=== PATIENT | male | born 1965 | race Caucasian/White ===

== ENCOUNTER → 2017-06-10 | Outpatient (CLI) | payer OTHER ==
[~2017-06-10] MED LIST: ALBUAER19 INH; DPTSTI200 IM; ESOM20CA PO; ETRA100T3 PO; RALT400T PO; [UNRECOGNIZED DRUG - CODE] PO
--- NOTE | 2017-06-11 05:15 | PAP/PSG TECHNICIAN REPORT ---
[facility] Supervisor Typesetting Polysomnogram Report Study name: None Report date: 06/11/2017 Study date: 06/10/2017 Referring Physician: Ino Gonzáles M.D. Name: MAUREEN WINKLER Interpreting Physician: Yael Gonzáles M.D. Date of : 1965 Supervisor Typesetting: REECE Chambers. Sex: Male Age: 51 StudyType: PSG PAP Weight: 218 lbs Height: 51 years, Height 5' 9" BMI: 32.19 Medications: INTELENCE 100 MG, SELZENTRY 300 MG, ISENTRESS 400 MG, SINGULAIR 10 MG, WELLBUTRIN SR 100 MG, PROAIR HFA 108 (90) BASE, FLONASE 50 MCG/ACT, NEXIUM 40 MG Patient History PATIENT HAD A HOME SLEEP STUDY DONE IN DECEMBER OF 2016 WITH AN AHI 27.4/HR. HE CURRENTLY WEARS CPAP WITH 12CWP. HE IS HERE TODAY FOR A CPAP TITRATION. RM 5 Parameters Monitored NPSG: E1-M2, E2-M1, Fp1-M2, Fp2-M1, F3-M2, F4-M2, F4-M1, C3-M2, C4-M2, C4-M1, O1-M2, O2-M2, O2-M1, T3-M2, T4-M1, P3-M2, P4-M1, CHIN1, CHIN2, HR, EKG, Legs, PFLOW, SNOR, FLOW, CFLOW, Tidal Volume, THOR, ABDO, SpO2, PLTH, CPRESS, ETCO2 Wave, ETCO2, pH Sleep Architecture Sleep Stages Time at Lights Off 9:58:10 PM STAGES Time (min.) TST (%) Time at Lights On 4:21:10 AM Wake 30.0 -- Total Recording Time (TRT) 383.50 min. N1 12.0 3 Total Sleep Period (TSP) 374.0 min. N2 193.0 55 Total Sleep Time (TST) 353.0min. N3 48.0 14 Awake Time 30.5 min. REM 100.0 28 Wake after Sleep Onset 28.0 min. Sleep Efficiency (SE) 92 % Sleep Onset Latency (CHRISTAL) 2.0 min. Number of Stage 1 Shifts None Awakenings 18 Stage Changes 67 Number of REM periods 6 REM 100.0 28 REM Latency 58.5 min. NREM 253.0 72 Body Position Analysis Supine Right Left Side Prone Vertical Total Sleep Time (min.) 212.5 114.3 45.7 160.05 3.9 0.0 Total Sleep Time (%) 54% 32% 13% 45 1% N/A% Total Sleep Time REM (min.) 50.7 49.3 0.0 None 0.0 0.0 Total Sleep Time NREM (min.) 138.4 65.0 45.7 None 3.9 0.0 Intermittent Wake (min.) 23.4 4.0 2.6 None 0.0 0.0 Total Sleep Period (%) 54% None None None None None Arousals Myoclonus (PLM) * Events Count Index Events Count Index Spontaneous 27 5 Events Awake (PLMW) 48 96.0 Respiratory 7 1.2 Events Asleep w/ Arousal (PLMA) 23 3.9 PLM 22 4 Events Asleep w/o Arousal (PLMS) 235 39.9 Snoring 8 1 Total Asleep 258 43.9 Total 64 11 Total 306 48 Respiratory Analysis * CA OA MA CH H RERA Total Count 1 1 0 0 12 4 14 Index 0.2 0.2 0.0 0 2.0 1 3.1 Mean Duration 15.3 12.3 0.0 0.00 16.6 15.6 16.1 Longest Duration 15.3 12.3 0.0 0.00 0.0 17.3 26.5 Respiratory Event Summary Total Supine ~Supine Right Left Prone REM NREM Apneas Count 2 1 1 1 0 0 2 0 Index 0.3 0 0 0.5 0.0 0 1 0 Hypopneas (4% Desat) Count 12 4 8 8 0 0 12 0 Index 2.0 1.3 3 4.2 0.0 0.0 7.2 0.0 Apneas & All Hypopneas Count 14 5 9 9 0 0 14 0 Index 2.4 2 3 5 0 0 8.4 0.0 Respiratory Events (Child Care Assistant+All Hyp+RERA) Count 14 7 11 11 0 0 14 0 Index 3.1 2 4 5.8 0.0 0.0 9.6 0.5 Respiratory Related Arousal Count 7 7 3 3 0 0 5 2 Index 1.2 1 1 2 0 0 3 0 Snoring Analysis Supine Right Left Prone REM NREM Total Snore duration 10.4 min Snores count 255 132 72 0 122 337 459 Snore mean duration 1.4 Sec Snores index 81 69 94 0 73.2 79.9 78.0 TST with snoring (%) 2.9% Desaturation Event Summary: Minimum %SpO2 Event Count Mean/Min/Max Duration(sec.) Desaturation Index % Time In Bed > 90 16 35.9 / 10.8 / 60.0 2.6 98.9 86 - 90 1 12.0 / 12.0 / 12.0 18.0 0.9 81 - 85 0 N/A 0.0 0.2 76 - 80 0 N/A 0.0 0.0 71 - 75 0 N/A 0.0 0.0 66 - 70 0 N/A 0.0 0.0 61 - 65 0 N/A 0.0 0.0 56 - 60 0 N/A 0.0 0.0 51 - 55 0 N/A 0.0 0.0 < 50 0 N/A 0.0 0.0 Total REM NREM Awake <50% 0.0 min. 0.0 min. 0.0 min. 0.0 min. 51 - 60% 0.0 min. 0.0 min. 0.0 min. 0.0 min. 61 - 70% 0.0 min. 0.0 min. 0.0 min. 0.0 min. 71 - 80% 0.0 min. 0.0 min. 0.0 min. 0.0 min. 81 - 90% 4.1 min. 1.8 min. 1.0 min. 1.4 min. 91 - 100% 369.7 min. 96.4 min. 250.2 min. 23.1 min. Average 94 94 93 94 Minimum SpO2 82 83 88 82 Desaturation Event Index 2.5 8.4 0.0 4.0 # Desat. Events below 89% 3 3 N/A 0 Time(%) with Saturation below 89% 0.3 0.2 0.0 0.2 Time(min.) with Saturation below 89% 1.3 0.6 0.0 0.6 Time (mins) REM (mins) NREM (mins) % of TST SpO2 Below 90% 4 4 NN/A 0.3 SpO2 Below 88% 1 0 0 0 Heart Rate Analysis Min (bpm) Max (bpm) Average (bpm) Awake 51 127 74 NREM 58 88 72 REM 56 127 70 Overall 56 127 71 Supplemental O2 Values Minimum O2 level: None Value Start Time End Time Supervisor Typesetting Comments Mr. Winkler slept in the right, left, supine and prone positions. No cardiac arrhythmia noted. Leg movements noted. No bruxism noted. CPAP was initiated at 10 CMH2O and up-titrated to an optimal level of 15 CMH2O, which nearly eliminated all respiratory events and snoring. The patient brought in is own mask that was used during titration Mr. Winkler awoke to use the restroom 1 time during the night. Mr. Winkler stated I slept as well as I do when I am in my own bed. The final report will be interpreted and signed by a sleep physician. The completed physician report will then be placed in the patient medical record. Therapy Event: Therapy (cm H20) 10 11 12 13 14 15 Total Time at Pressure (min.) 45.2 35.8 92.0 32.1 95.5 82.4 TST at Pressure (min.) 41.2 35.3 88.5 28.1 94.5 65.4 # Periods 1 1 1 1 1 1 Sleep Onset (min.) 2.0 0.0 0.0 0.0 0.0 0.0 REM Onset (min.) N/A 15.3 63.6 N/A 39.4 40.4 Sleep Efficiency % 91 98 96 87 99 79 Wakefulness (%) 8.9 1.4 3.8 12.5 1.0 20.6 Wakefulness (min.) 4.0 0.5 3.5 4.0 1.0 17.0 NREM 1 (%) 5.5 2.8 2.2 7.8 1.0 3.6 NREM 1 (min.) 2.5 1.0 2.0 2.5 1.0 3.0 NREM 2 (%) 57.9 44.1 44.6 79.8 35.6 61.2 NREM 2 (min.) 26.2 15.8 41.0 25.6 34.0 50.4 NREM 3 (%) 27.7 0.0 32.6 0.0 5.8 0.0 NREM 3 (min.) 12.5 0.0 30.0 0.0 5.5 0.0 REM (%) 0.0 51.7 16.8 0.0 56.5 14.6 REM (min.) 0.0 18.5 15.5 0.0 54.0 12.0 # Arousals 7 11 13 7 19 7 Arousal Index 10.2 18.7 8.8 14.9 12.1 6.4 # Snore 67 40 89 78 128 57 Snore Index 97.6 68.1 60.3 166.5 81.2 52.3 AHI 0.0 3.4 0.7 0.0 5.7 1.8 AHI Supine 0.0 3.4 0.0 0.0 2.2 2.0 AHI Non-Supine N/A N/A 0.7 0.0 7.1 0.0 NREM AHI 0.0 0.0 0.0 0.0 0.0 0.0 REM AHI N/A 6.5 3.9 N/A 10.0 10.0 RDI 2.9 3.4 0.7 0.0 7.0 1.8 # Obstructive 0 0 0 0 1 0 # Central Ap 0 0 0 0 0 1 # Mixed 0 0 0 0 0 0 # Hypopneas 0 2 1 0 8 1 RERAS 2 0 0 0 2 0 Total Respiratory Events 2 2 1 0 11 2 Time Below SpO2 89.00% (min.) 0.0 0.5 0.0 0.0 0.1 0.0 Mean NREM SpO2 (%) 92 92 93 94 94 94 Mean REM SpO2 (%) N/A 93 94 N/A 94 94 Mean Sleep SpO2 (%) 92 93 94 94 94 94 Min NREM SpO2 (%) 88 91 91 91 92 91 Min REM SpO2 (%) N/A 83 92 N/A 87 91 Position Supine (min.) 41.2 35.3 4.8 21.1 26.7 60.0 Position Non-supine (min.) 0.0 0.0 83.7 7.1 67.8 5.4 LM Index Sleep 87.4 76.6 21.7 81.1 35.5 24.8 LM Index NREM 87.4 89.5 14.8 81.1 3.0 23.6 LM Index REM N/A 64.9 54.2 N/A 60.0 30.0 Mean Heart Rate (bpm) 79 75 72 68 69 68 Min Heart Rate (bpm) 73 66 61 58 56 58
--- NOTE | 2017-06-18 19:47 | POLYSOMNOGRAPH REPORT ---
REFERRING PERSON: Dr. Natty Gonzáles. CONTRO[employer]ER [employer]: Johnny Anderson. Mr. Winkler is a 51-year-old male who presents to the sleep lab for a CPAP titration study. He had a home sleep test in December of 2016, which showed an AHI of 27. He is currently using CPAP at home with a pressure of 12. His [place] sleepiness scale score on the evening of this study is not recorded. BMI is 32.19. Following the technical and digital specifications of the [employer] (AASM) a standard diagnostic polysomnogram was performed monitoring EEG, EOG, EMG (chin and leg deviations), oxygen saturation, body position, digital video, respiratory effort and airflow. The sleep Stage and event scoring was based on the AASM Manual for the Scoring of Sleep and Associated Events 2007 edition. Apneas are defined as a drop in the peak thermal sensor excursion by >90% of baseline for at least 10 seconds. Hypopneas were scored using the 4% oxygen desaturation rule (4A-[employer]) and a decrease in the nasal pressure excursions by >30% of baseline for at least 10 seconds. Respiratory effort-related arousal (RERA's) is defined as a sequence of breaths lasting at least 10 seconds characterized by increasing respiratory effort or flattening of the nasal pressure waveform leading to an arousal from sleep when the sequence of breaths does not meet criteria for an apnea or hypopnea. Apnea Hypopnea index (AHI) is defined as the number of apneas and hypopneas occurring in an hour of sleep. Respiratory disturbance index (RDI) is defined as the number of apneas, hypopneas, and RERA's occurring in an hour of sleep. Mr. Leon total sleep period time was 374 minutes. Total sleep time was 353 minutes. Sleep efficiency was 92%. Latency to sleep onset was 2 minutes with wake after sleep onset was 28 minutes. Total non-REM sleep time was 253 minutes. He spent 3% of that time in N1 sleep, 55% in N2 sleep and 14% in N3 sleep. REM latency was 58.5 minutes. Total REM sleep time was 100 minutes or 28% of total sleep time. There were 64 cortical arousals from sleep. Eight of these arousals were due to snoring, 22 were due to periodic limb movements of sleep, 7 were due to respiratory events, and 27 were spontaneous. There were 258 periodic limb movements noted on this test. Limb movement index was 43.9 and limb movement with arousal index was 3.9. There was 1 central, 1 obstructive and no mixed apneas on this test. There were 12 hypopneas and 4 RERA. Apnea-hypopnea index on this titration was normal at 2.4. Four hundred and fifty nine snoring events were recorded. Total sleep time with snoring was 2.9%. Mean saturation was 94% with desaturations to 82%. Saturations were less than 89% for 1.3 minutes during the titration. There was no cardiac ectopy noted on this study. Heart rates during sleep ranged from a low of 56 beats per minute to a high of 127 beats per minute. As stated above, this was a CPAP titration study. Mr. Winkler' titration was started at a CPAP pressure of 10 and increased to a CPAP pressure of 15 over the course of the night. Increasing pressures were needed to prevent hypopneas and arousals. He was observed on a pressure of 15 for 65.4 minutes of sleep. Twelve of those minutes were spent in supine REM sleep. AHI and RDI on this pressure were both 1.8 and there were no desaturations less than 89% on this pressure. IMPRESSION AND PLAN: Successful CPAP titration study in this patient with known obstructive sleep apnea. I would recommend that this patient's pressure be increased from a pressure of 12 to a pressure of 15. A download from his machine should be reviewed in 1 month and an apnea-hypopnea index can be reexamined at that time. RADHA
== END | disposition home or self-care (01) ==
LOC: C.NEUR 21:00
PROVIDERS: ATTEND Family Medicine
DX: G47.33 Obstructive sleep apnea (adult) (pediatric) (principal); Z99.89 Dependence on other enabling machines and devices

== ENCOUNTER 2020-12-16 14:38 | Inpatient (IN) ==
[2020-12-16] MEDS ORDERED: ACETAMINOPHEN 1,000 MG/100 ML VIAL IV STA (15:10)
--- NOTE | 2020-12-16 15:16 | Emergency Department Note ---
History of Present Illness General Chief complaint: Abdominal Pain Stated complaint: STOMACH PAIN Time Seen by Provider: 12/16/20 14:58 History of Present Illness Maximum Pain Intensity: 7 This is a 55-year-old male that presents to emergency department via private vehicle with complaints "abdominal pain". The patient notes that he felt a tearing-like sensation in his abdomen several days ago and then 2 days ago he notes that he drank some soda at work and then felt ill. He noted some uncomfortable sensations in the upper abdomen and then drank some Pepto-Bismol. He then drank a laxative. He then notes his stools were black. The pain then migrated to the lower quadrants bilaterally. No known trauma or injury. He has a history of bladder surgery, appendectomy and notes he has a hernia. He notes that he had to call off of work last night secondary to lower abdominal pain. He does note a slightly elevated temperature. He states normally he works 2 jobs and is quite active but unfortunately secondary to the pain has been bedridden. Current discomfort 05/10. No vomiting. Patient did take Motrin prior to arrival. Patient has been compliant as well with his antivirals for HIV. Home Medications Medication Instructions Recorded Confirmed Type esomeprazole magnesium 40 mg 40 mg PO DAILY 09/13/20 12/16/20 History capsule,delayed release fluticasone furoate 200 1 inh INHALATION DAILY 09/13/20 12/16/20 History mcg-vilanterol 25 mcg/dose inhalation powder montelukast 10 mg tablet 10 mg PO QPM 09/13/20 12/16/20 History tiotropium bromide 18 mcg capsule 1 cap INHALATION DAILY 09/13/20 12/16/20 History with inhalation device albuterol sulfate 2 puff INHALATION Q6 PRN 12/16/20 12/16/20 History darunavir-cobicistat [Prezcobix] 1 tab PO DAILY 12/16/20 12/16/20 History dolutegravir [Tivicay] 50 mg PO BID 12/16/20 12/16/20 History fluticasone propionate [Flonase 2 spray INTRANASAL DAILY 12/16/20 12/16/20 History Allergy Relief] gabapentin 300 mg PO HS 12/16/20 12/16/20 History Allergies Allergy/AdvReac Type Severity Reaction Status Date / Time No Known Allergies Allergy Unknown Verified 12/16/20 19:01 Past Med/Surg History Medical History (Updated 12/16/20 @ 22:44 by Joo Barreto PA-C) COPD (chronic obstructive pulmonary disease) GERD (gastroesophageal reflux disease) HIV (human immunodeficiency virus infection) RODRIGO on CPAP Surgical History (Updated 12/16/20 @ 18:57 by Nyasia Bravo PA-C) History of cholecystectomy Hx of appendectomy Hx of tonsillectomy Family History Mother Stroke Heart disease Other Dyslipidemia No family history of adverse response to anesthesia No family history of bleeding disorder Social History Smoking Status: Current every day smoker packs per day: 1; Second Hand Exposure: No; Do You Dip or Chew Tobacco: No; Tobacco Cessation Education Requested by Patient: No Hx Alcohol Use: No Hx Substance Use: No Preferred Language: [place] Car Driver Required: No Beliefs That Will Affect Care: None Current Living Situation: Spouse Other Information That Helps Us Care for You: No Feels Safe at Home: Yes Safety Concerns: Feels Safe At This Time Assistive Devices: Glasses Review of Systems A total of 10 systems reviewed and were otherwise negative Physical Exam Vital Signs Vital Signs - 24 hr 12/16/20 14:41 12/16/20 17:14 Temperature 36.9 C Temperature Source Temporal Artery Scan Pulse Rate 113 H Pulse Rate [Finger] 95 H Respiratory Rate 20 18 Respiratory Effort / Characteristics Non-Labored Spontaneous Respiratory Depth Normal Blood Pressure 122/71 Blood Pressure [Right Arm] 122/65 Blood Pressure Mean 88 Blood Pressure Mean [Right Arm] 84 Blood Pressure Position Sitting Pulse Oximetry 98 96 Oxygen Delivery Method Room Air Room Air Sepsis Recent Fever Within 48 Hours Yes Sepsis New/Unexplained Change in Mental Status No Sepsis Action Taken by Nursing No Action Required VITAL SIGNS - Vital signs and nursing notes were reviewed. Mildly tachycardic, otherwise stable. GENERAL -55-year-old male appearing his stated age who is in no acute distress. Communicates well with provider and answers questions appropriately. SKIN - Without rashes. No meningeal or petechial rash. HEAD - NC/AT. EYES - PERRL with EOMI bilaterally. Sclera anicteric. EARS - No deformities of external structures noted on gross examination bilaterally. NOSE - Midline and without cyanosis. No epistaxis or purulent drainage noted. MOUTH/OROPHARYNX - Without perioral cyanosis. NECK - Neck with FROM. No nuchal rigidity. LUNGS - Chest wall symmetric without accessory muscle use, intercostals retractions, or central cyanosis. Normal vesicular breath sounds CTA B/L. No wheezes, rales, or rhonchi appreciated. CARDIAC - RRR with S1/S2. No murmur, rubs, or gallops appreciated. ABDOMEN - Abdominal contour normal without pulsations or visible masses. BS normoactive all four quadrants. Abdomen is soft and nonrigid. Mild lower abdominal tenderness palpation bilaterally. No palpable masses, hepatosplenomegaly, or ascites noted. EXTREMITIES - No clubbing or peripheral cyanosis. No pretibial edema present. + 5/5 strength noted in UE/LE bilaterally. NEUROLOGIC - Cranial nerves II through XII grossly intact. PSYCH - A&Ox3 and cooperates fully with examiner. Pt is very pleasant and interacts well with examiner. Course Administered Medications Dolutegravir Sodium (Dolutegravir Sodium 50 Mg Tab) 50 mg PO BID MAXIMINO Stop: 01/15/21 20:59 Last Admin: 12/16/20 21:44 Dose: 50 mg Documented by: [id number] Enoxaparin Sodium (Enoxaparin Inj 40 Mg/0.4 Ml Syr) 40 mg SQ Q24H MAXIMINO Stop: 01/15/21 20:59 Last Admin: 12/16/20 21:45 Dose: 40 mg Documented by: [id number] Gabapentin (Gabapentin 300 Mg Cap) 300 mg PO HS MAXIMINO Stop: 01/15/21 20:59 Last Admin: 12/16/20 21:44 Dose: 300 mg Documented by: [id number] Hydromorphone HCl (Hydromorphone Inj 0.5 Mg/0.5 Ml Syr) 0.5 mg IV Q3H PRN PRN Reason: Pain Stop: 12/30/20 20:45 Last Admin: 12/16/20 21:12 Dose: 0.5 mg Documented by: [id number] Famotidine 20 mg/ Syringe 5 mls @ 2.5 mls/min IV BID MAXIMINO Stop: 01/15/21 20:59 Last Admin: 12/16/20 21:43 Dose: 2.5 mls/min Documented by: [id number] Lactated Ringer's (Lr) 1,000 mls @ 200 mls/hr IV .Q5H MAXIMINO Stop: 01/15/21 20:45 Last Admin: 12/16/20 21:10 Dose: 200 mls/hr Documented by: [id number] Montelukast Sodium (Montelukast Sodium 10 Mg Tablet) 10 mg PO QPM MAXIMINO Stop: 01/15/21 20:59 Last Admin: 12/16/20 21:44 Dose: 10 mg Documented by: [id number] Discontinued Medications Acetaminophen (Ofirmev) 1,000 mg in 100 mls @ 400 mls/hr IV NOW STA Stop: 12/16/20 15:24 Last Infusion: 12/16/20 16:16 Dose: 0 mls/hr Documented by: [id number] Admin: 12/16/20 15:22 Dose: 400 mls/hr Documented by: [id number] Sodium Chloride (Nss 1000ml) 1,000 mls @ 999 mls/hr IV .Q1H1M MAXIMINO Stop: 12/16/20 16:30 Last Infusion: 12/16/20 18:24 Dose: 0 mls/hr Documented by: [id number] Admin: 12/16/20 16:14 Dose: 999 mls/hr Documented by: [id number] Sodium Chloride (Nss 1000ml) 1,000 mls @ 250 mls/hr IV .Q4H MAXIMINO Stop: 12/16/20 22:14 Last Infusion: 12/16/20 20:47 Dose: 0 mls/hr Documented by: [id number] Admin: 12/16/20 18:24 Dose: 250 mls/hr Documented by: [id number] Insulin Aspart (Insulin Aspart 100 Units/Ml 3 Ml Pen) 0 units SC ACHS MAXIMINO Stop: 01/15/21 20:59 Last Admin: 12/16/20 21:41 Dose: 3 units Documented by: [id number] Cosigned by: [id number] Ioversol (Ioversol 100ml) 94 ml IV ONCE ONE Stop: 12/16/20 17:19 Last Admin: 12/16/20 17:18 Dose: 94 ml Documented by: [id number] Morphine Sulfate (Morphine Sulfate 4 Mg/Ml 1 Ml Carp\\Vial) 4 mg IV NOW STA Stop: 12/16/20 18:03 Last Admin: 12/16/20 18:24 Dose: 4 mg Documented by: [id number] Ondansetron HCl (Ondansetron Inj 2 Mg/Ml 2 Ml Vial) 4 mg IV NOW STA Stop: 12/16/20 18:03 Last Admin: 12/16/20 18:24 Dose: 4 mg Documented by: [id number] Medical Decision Making Laboratory Data Result diagrams: 12/16/20 15:16 12/16/20 15:16 Lab Results 12/16/20 12/16/20 Range/Units 15:16 15:16 WBC 13.13 H (4.8-10.8) K/uL RBC 4.89 (4.7-6.1) M/uL Hgb 13.4 L (14.0-18.0) g/dL Hct 38.5 L (42-52) % MCV 78.7 L (80-100) fL MCH 27.4 (25-34) pg MCHC 34.8 (32-36) g/dL RDW Std Deviation 40.5 (36.4-46.3) fL RDW Coeff of Saul 14.2 (11.5-14.5) % Plt Count 167 (130-400) K/uL MPV 11.7 H (7.4-10.4) fL Immature Gran % (Auto) 0.5 % Neut % (Auto) 76.9 % Lymph % (Auto) 14.5 % [place] % (Auto) 7.0 % Eos % (Auto) 0.9 % Baso % (Auto) 0.2 % Neut # (Auto) 10.11 H (1.4-6.5) K/uL Lymph # (Auto) 1.90 (1.2-3.4) K/uL [place] # (Auto) 0.92 H (0.11-0.59) K/uL Eos # (Auto) 0.12 (0-0.5) K/uL Baso # (Auto) 0.02 (0-0.2) K/uL Immature Gran # (Auto) 0.06 H (0.00-0.02) K/uL Sodium 137 (136-145) mmol/L Potassium 4.2 (3.5-5.1) mmol/L Chloride 101 (98-107) mmol/L Carbon Dioxide 22 (21-32) mmol/L Anion Gap 9.0 (3-11) BUN 9 (7-18) mg/dl Creatinine 0.95 (0.6-1.4) mg/dl Est Cr Clr Drug Dosing 85.8 ml/min Est GFR ( Amer) 102.6 Est GFR (Non-Af Amer) 88.5 BUN/Creatinine Ratio 9.9 L (10-20) Glucose 320 H* (70-99) mg/dl Calcium 8.7 (8.5-10.1) mg/dl Magnesium 2.1 (1.8-2.4) mg/dl Total Bilirubin 0.8 (0.2-1) mg/dl AST 14 L (15-37) U/L ALT 38 (12-78) U/L Alkaline Phosphatase 149 H (45-117) U/L Total Protein 7.1 (6.4-8.2) gm/dl Albumin 3.2 L (3.4-5.0) gm/dl Globulin 3.9 (2.5-4.0) gm/dl Albumin/Globulin Ratio 0.8 L (0.9-2) Lipase 1746 H (73-393) U/L Beta-Hydroxybutyric Acd (0.2-2.81) mg/dl Imaging Data Radiologist's Impression: ABDOMEN AND PELVIS CT WITH IV CONTRAST CT DOSE: 728.34 mGy.cm HISTORY: Acute lower abdominal pain abd pain, lower TECHNIQUE: Multiaxial CT images of the abdomen and pelvis were performed following the IV administration of 94 cc of Optiray 320, A dose lowering technique was utilized adhering to the principles of ALARA. COMPARISON STUDY: CT abdomen and pelvis 09/28/2018 FINDINGS: The imaged inferior cardiac chambers are unremarkable. Unchanged 2.0 x 1.3 cm hypodense right epicardial nodule which is likely benign. Clear lung bases. No pneumatosis or pneumoperitoneum. The spleen and adrenal glands are unremarkable. Cholecystectomy. Hepatic steatosis. Patency of the hepatic and portal veins. There is mild to moderate interstitial and peripancreatic edema involving the uncinate process of the pancreas with reactive edema extending into the mesenteric root and right pericolic gutter. No evidence of pancreatic necrosis. No pancreatic ductal dilation or peripancreatic fluid collection. There is circumferential wall thickening involving the third portion of the duodenum. No evidence of perforation. No bowel obstruction. Normal appendix. Tiny fat filled periumbilical hernia. No acute fracture. Posterior disc osteophyte complex noted at L5-S1. IMPRESSION: 1. Mild to moderate interstitial and peripancreatic edema involves the uncinate process of the pancreas suggestive of acute pancreatitis. Wall thickening involving the third portion of the duodenum is likely reactive. Primary duodenitis is considered less likely. 2. Cholecystectomy. No biliary ductal dilation. 3. No bowel obstruction. Normal appendix. 4. Hepatic steatosis. ACT 112: Negative or not required by law. The above report was generated using voice recognition software. It may contain grammatical, syntax or spelling errors. Electronically signed by: Hipolito Rivera M.D. 12/16/2020 5:48 PM MDM Narrative As notedPatient was seen and evaluated as above in room A04. Review was performed of nursing notes and vital signs. I did review pertinent previous visits and patient history. After obtaining a thorough history and physical examination the above work up was performed. He presents to us today with lower abdominal pain with the pain beginning about 2 days ago. It was after he drank some soda. The pain initially was in the epigastric/periumbilical region but now is in the lower quadrants. He is nontoxic on exam but is mildly tachycardic. He is reproducible tenderness in the lower quadrants. The abdomen is soft and nonrigid. Options of care were discussed with the patient. Through shared decision making at this time we agreed upon laboratory studies, as well as CT scan of the abd omen and pelvis. The patient did drive himself here and would like to be able to drive home. We then discussed options of pain management given that he drove and already had Motrin just prior to arrival. We agreed upon IV Tylenol and in the meantime he will reach out to family to see if somebody could pick him up and if the Tylenol does not alleviate his pain and certainly we can increase to stronger pain medication. Patient is happy with this plan. Laboratory studies reveal mild leukocytosis 13.13 with mild anemia with hemoglobin at 13.4. Glucose 320. Lipase elevation 1746. Urinalysis does not reveal infection but does reveal 3+ glucose. Covid testing negative. CT scan obtained of the abdomen pelvis with results as above. And clinically correlates. Do believe that further evaluation and management in the inpatient setting is warranted. Patient educated upon findings as well as his per request via phone. She did request that he was not placed on med telemetry/Covid unit. I relayed this request to the admission team. I did then order additional pain medication for the patient in addition to antiemetics. I discussed the presentation with the hospitalist. He will be admitted for further evaluation and management. Please refer to further documentation regarding his stay. GCS: 15 In the evaluation and treatment of this patient the following differential melany gnoses were entertained: [place], PE, pericarditis, costochondritis, bowel obstruction, pancreatitis, gastritis, choledocholithiasis, among others. Impression & Plan Acute pancreatitis, Hyperglycemia Discharge Plan Visit Data Chief Complaint: Abdominal Pain Stated Complaint: STOMACH PAIN ED Provider: Emmie Felix ED Midlevel Provider: Joo Barreto Discharge Problem: Acute pancreatitis, Hyperglycemia Patient Disposition: Admitted As Inpatient Condition: Good Discharge Instructions Interventions: ED Discharge Assessment Last Done: 12/16/20 20:30
[2020-12-16 15:30] LABS: Basophils # (auto) 0.02 K/uL (0-0.2); Basophils % (auto) 0.2 %; Eosinophils # (auto) 0.12 K/uL (0-0.5); Eosinophils % (auto) 0.9 %; Hematocrit (blood only) 38.5 % (42-52); Hemoglobin 13.4 g/dL (14.0-18.0); Immature Granulocytes # (auto) 0.06 K/uL (0.00-0.02); Immature Granulocytes % (auto) 0.5 %; Lymphocytes % (auto) 14.5 %; Mean Corpuscular Hemoglobin 27.4 pg (25-34); Mean Corpuscular Hgb Conc 34.8 g/dL (32-36); Mean Corpuscular Volume 78.7 fL (80-100); Mean Platelet Volume 11.7 fL (7.4-10.4); Monocytes # (auto) 0.92 K/uL (0.11-0.59); Neutrophils # (auto) 10.11 K/uL (1.4-6.5); Neutrophils % (auto) 76.9 %; Platelet Count 167 K/uL (130-400); RDW Coefficient of Variation 14.2 % (11.5-14.5); RDW Standard Deviation 40.5 fL (36.4-46.3); Red Blood Count 4.89 M/uL (4.7-6.1); White Blood Count 13.13 K/uL (4.8-10.8)
[2020-12-16] MEDS ORDERED: SODIUM CHLORIDE 0.9% 1000ML 1,000 ML IV SCH ×2 (15:30→18:15)
[2020-12-16 16:50] LABS: Albumin Level 3.2 gm/dl (3.4-5.0)
[2020-12-16 16:51] LABS: Albumin Globulin Ratio 0.8 (0.9-2); BUN Creatinine Ratio 9.9 (10-20); Bilirubin,Total 0.8 mg/dl (0.2-1); Calcium 8.7 mg/dl (8.5-10.1); Creatinine Clr Calc Pharmacy 85.8 ml/min; Est GFR (African American) 102.6; Est GFR (Non-African American) 88.5; Globulin 3.9 gm/dl (2.5-4.0); Total Protein 7.1 gm/dl (6.4-8.2)
[2020-12-16] MEDS ORDERED: OPTIRAY 320 100ml IV ONE (17:18)
[2020-12-16 17:35] LABS: Potassium 4.2 mmol/L (3.5-5.1)
[2020-12-16 17:43] LABS: Magnesium 2.1 mg/dl (1.8-2.4)
--- NOTE | 2020-12-16 17:49 | CT Scan Report ---
ABDOMEN AND PELVIS CT WITH IV CONTRAST CT DOSE: 728.34 mGy.cm HISTORY: Acute lower abdominal pain abd pain, lower TECHNIQUE: Multiaxial CT images of the abdomen and pelvis were performed following the IV administrat ion of 94 cc of Optiray 320, A dose lowering technique was utilized adhering to the principles of [place] CRIST[place]. COMPARISON STUDY: CT abdomen and pelvis 09/28/2018 FINDINGS: The imaged inferior cardiac chambers are unremarkable. Unchanged 2.0 x 1.3 cm hypodense rig ht epicardial nodule which is likely benign. Clear lung bases. No pneumatosis or pneumoperitoneum. The spleen and adrenal glands are unremarkable. Cholecystectomy. Hepatic steatosis. Patency of the he patic and portal veins. There is mild to moderate interstitial and peripancreatic edema involving the uncinate process of the pancreas with reactive edema extending into the mesenteric root and right pe ricolic gutter. No evidence of pancreatic necrosis. No pancreatic ductal dilation or peripancreatic f luid collection. There is circumferential wall thickening involving the third portion of the duodenum . No evidence of perforation. No bowel obstruction. Normal appendix. Tiny fat filled periumbilical he rnia. No acute fracture. Posterior disc osteophyte complex noted at L5-S1. IMPRESSION: 1. Mild to moderate interstitial and peripancreatic edema involves the uncinate process of the pancre as suggestive of acute pancreatitis. Wall thickening involving the third portion of the duodenum is l ikely reactive. Primary duodenitis is considered less likely. 2. Cholecystectomy. No biliary ductal dilation. 3. No bowel obstruction. Normal appendix. 4. Hepatic steatosis. ACT 112: Negative or not required by law. The above report was generated using voice recognition software. It may contain grammatical, syntax o r spelling errors. Electronically signed by: Hipolito Rivera M.D. 12/16/2020 5:48 PM
[2020-12-16] MEDS ORDERED: ONDANSETRON INJ 2 MG/ML 2 ML VIAL IV STA (18:02)
[2020-12-16] MEDS ORDERED: MoRPHine SULFATE 4 MG/ML 1 ML CARP\\VIAL IV STA (18:02)
--- NOTE | 2020-12-16 18:17 | History & Physical Report ---
Date of Service December 16, 2020 Assessment & Plan (1) Acute pancreatitis: This is a 55yo M with a PMH of HIV, COPD, ongoing tobacco use, GERD, prediabetes, RODRIGO on CPAP and other medical issues who presents with abdominal pain x 2 days and was found to have acute pancreatitis. Lipase 1,746 Ct abd/pelvis with mild to moderate interstitial and peripancreatic edema involves the uncinate process of the pancreas suggestive of acute pancreatitis. Wall thickening involving the third portion of the duodenum is likely reactive H/o cholecystectomy, denies alcohol use. Family h/o dyslipidemia. Will order fasting lipid panel in AM ? side effect from HIV medications (currently on Prezcobix, Tivicay) Keep NPO LR @ 200 ml/hr IV Pepcid 20mg BID Pain control Routine GI consult Repeat CMP in AM (2) Hyperglycemia: BSG >300 History of pre-diabetes diagnosis - checking a1c in AM SSI while in-patient BSG AC HS (3) HIV (human immunodeficiency virus infection): Follows with [facility] at [facility] Most recent labowork in Jun 2020 with detected HIV RNA but <20, not quantifiable Continue home antivirals (4) COPD (chronic obstructive pulmonary disease): Continues to smoke. Offered nicotine patch but not interested Continue Singulair, home inhalers (5) RODRIGO on CPAP: CPAP HS DVT Ppx: SQ Lovenox Code status: FULL PCP: Crys Dispo: Admitted to med/surg. Plan to return home once medically stable. Patient seen in collaboration with Dr. Grace. Please see addendum. History of Present Illness Primary Care Provider: John Spangler MD This is a 55yo M with a PMH of HIV, COPD, ongoing tobacco use, GERD, prediabetes, RODRIGO on CPAP and other medical issues who presents with abdominal pain x 2 days. Tried Pepto bismol and a laxative but did not alleviate symptoms. Pain is sharp and cramping in epigastric region as well as lower abdomen and wraps towards his back. Pain is constant. Improved after pain medication. Endorses subjective fever and chills. Denies nausea or vomiting. Had 2 soft bowel movements earlier today. Denies lightheadedness, headache, chest pain, wheezing or dysuria. Chronic unchanged cough. Transient episode of SOB after CT scan but has resolved. Denies alcohol use. Smokes 1 pack/day. Diagnosed with prediabetes in the past and has not had A1c checked recently. Family history of dyslipidemia. History of cholecystectomy. Allergies Allergy/AdvReac Type Severity Reaction Status Date / Time No Known Allergies Allergy Unknown Verified 12/16/20 19:01 Home Medications Medication Instructions Recorded Confirmed Type esomeprazole magnesium 40 mg 40 mg PO DAILY 09/13/20 12/16/20 History capsule,delayed release fluticasone furoate 200 1 inh INHALATION DAILY 09/13/20 12/16/20 History mcg-vilanterol 25 mcg/dose inhalation powder montelukast 10 mg tablet 10 mg PO QPM 09/13/20 12/16/20 History tiotropium bromide 18 mcg capsule 1 cap INHALATION DAILY 09/13/20 12/16/20 History with inhalation device albuterol sulfate 2 puff INHALATION Q6 PRN 12/16/20 12/16/20 History darunavir-cobicistat [Prezcobix] 1 tab PO DAILY 12/16/20 12/16/20 History dolutegravir [Tivicay] 50 mg PO BID 12/16/20 12/16/20 History fluticasone propionate [Flonase 2 spray INTRANASAL DAILY 12/16/20 12/16/20 History Allergy Relief] gabapentin 300 mg PO HS 12/16/20 12/16/20 History Past Med/Surg History Medical History (Updated 12/16/20 @ 19:02 by Nyasia Bravo PA-C) COPD (chronic obstructive pulmonary disease) GERD (gastroesophageal reflux disease) HIV (human immunodeficiency virus infection) RODRIGO on CPAP Surgical History (Updated 12/16/20 @ 18:57 by Nyasia Bravo PA-C) History of cholecystectomy Hx of appendectomy Hx of tonsillectomy Family History Mother Stroke Heart disease Other Dyslipidemia No family history of adverse response to anesthesia No family history of bleeding disorder Social History Smoking Status: Current every day smoker packs per day: 1; Hx Alcohol Use: No Hx Substance Use: No Feels Safe at Home: Yes Review of Systems Review of Systems: At least ten systems reviewed and negative except as noted in the HPI. Physical Exam Physical Exam: General Appearance: WD/WN, vitals as above, NAD, sitting up in bed, pleasant, conversing easily Head: normocephalic, atraumatic Eyes: normal inspection, PERRL, conjunctivae normal, anicteric sclerae ENT: external ear and nose normal, oropharynx normal Neck: normal visual inspection, trachea midline, no thyromegaly Respiratory: normal respiratory effort, lungs clear to auscultation, no wheeze, rales, rhonchi. No accessory muscle use Cardiovascular: regular rate, rhythm, no murmur, normal peripheral pulses, no BLE edema. Vessels: no JVD Chest: normal inspection of chest Abdomen/GI: normal bowel sounds, soft, dffusely TTP but no guarding, no hepatosplenomegaly Extremities/Musculoskeletal: no cyanosis or clubbing, extremities motor strength 5/5 Neurologic: PERRL, EOMI, accommodation nl, no face palsy, no dysarthria, CN's II-XI intact bilaterally and moves all extremities Psychiatric: A+Ox3, euthymic affect Skin: no rashes, normal color, warm/dry Results & Data Results & Data ([facility]) Vital Signs (Past 12 Hours) Vital Signs Temp Pulse Pulse Resp BP BP Pulse Ox 12/16/20 17:14 95 H 18 122/65 96 12/16/20 14:41 36.9 C 113 H 20 122/71 98 Laboratory Results Short CBC 12/16/20 Range/Units 15:16 WBC 13.13 H (4.8-10.8) K/uL Hgb 13.4 L (14.0-18.0) g/dL Hct 38.5 L (42-52) % Plt Count 167 (130-400) K/uL BMP 12/16/20 15:16 Sodium 137 Potassium 4.2 Chloride 101 Carbon Dioxide 22 BUN 9 Creatinine 0.95 Glucose 320 H* Calcium 8.7 Liver Function 12/16/20 Range/Units 15:16 Total Bilirubin 0.8 (0.2-1) mg/dl AST 14 L (15-37) U/L ALT 38 (12-78) U/L Alkaline Phosphatase 149 H (45-117) U/L Albumin 3.2 L (3.4-5.0) gm/dl Diagnostic Findings CT abd/pelvis: IMPRESSION: 1. Mild to moderate interstitial and peripancreatic edema involves the uncinate process of the pancreas suggestive of acute pancreatitis. Wall thickening involving the third portion of the duodenum is likely reactive. Primary duodenitis is considered less likely. 2. Cholecystectomy. No biliary ductal dilation. 3. No bowel obstruction. Normal appendix. 4. Hepatic steatosis. Code Status & VTE Plan VTE Prophylaxis Plan VTE Prophylaxis will be ordered: Yes Supervising Physician Co-Signing Physician Notes Patient is a 55-year-old male with history of HIV, COPD, tobacco use disorder and other medical problems presents with history of worsening abdominal pain since 2 days duration. Abdominal pain is predominantly epigastric, nonradiating, sharp, constant, 5/10 currently. Also reports associated low- grade fever, chills. Also reports having chronic cough with intermittent expectoration which is unchanged. He denies alcohol use. Please review HPI for complete details of presentation. CT abdomen showed findings suggestive of acute pancreatitis and possible duodenitis. Mild leukocytosis noted. Lipase is elevated at 1746. Also noted hyperglycemia at 320. Denies any known history of diabetes. On exam patient is obese, no apparent distress, normocephalic atraumatic, lungs are clear to auscultation, normal breath sounds, S1-S2, no murmur, tachycardia present, abdomen soft, tender predominantly epigastric, left lower quadrant, no guarding or rigidity, normal bowel sounds, alert, awake, oriented, grossly no focal neurological deficits, no pedal edema. Patient is admitted for management of acute pancreatitis, possible duodenitis. We will keep him on n.p.o., start him on IV fluids, IV Pepcid and consult GI. Pancreatitis likely secondary to hypertriglyceridemia likely ? induced secondary to his HIV medications. Also to rule out dyslipidemia, diabetes mellitus. Will check lipid panel and A1c in the morning. LFTs within normal limits. We will start him on insulin therapy to manage his blood glucose levels. I personally reviewed the record. Patient is interviewed and examined at bedside. Patient's care is coordinated with Nyasia Bravo PA-C. Please refer to the documentation above for details of patient's presentation and for discussion of other issues.
[2020-12-16] MEDS ORDERED: GLUCOSE 40% GEL 15 GM TUBE PO PRN (20:46)
[2020-12-16] MEDS ORDERED: ALBUTEROL HFA 8 GM INHALER INH PRN (20:46)
[2020-12-16] MEDS ORDERED: GLUCOSE 10 TABS/TUBE PO PRN (20:46)
[2020-12-16] MEDS ORDERED: DEXTROSE 50% 50 ML SYRINGE IV PRN (20:46)
[2020-12-16] MEDS ORDERED: CARBOHYDRATES FOR HYPOGLYCEMIA PO PRN (20:46)
[2020-12-16] MEDS ORDERED: ALBUT/IPRATROP 3MG/0.5MG NEB 3 ML VIAL NEB PRN (20:46)
[2020-12-16] MEDS ORDERED: GLUCAGON FOR INJ 1 MG VIAL SQ PRN (20:46)
[2020-12-16] MEDS ORDERED: INSULIN ASPART 100 UNITS/ML 3 ML PEN SC SCH (21:00)
[2020-12-16] MEDS: LACTATED RINGER'S 1,000 ML IV SCH (21:10)
[2020-12-16] MEDS: HYDROmorphone INJ 0.5 MG/0.5 ML SYR IV PRN (21:12)
[2020-12-16] MEDS: FAMOTIDINE 20 MG in SYRINGE 3 ML IV SCH (21:43)
[2020-12-16] MEDS: MONTELUKAST SODIUM 10 MG TABLET PO SCH (21:44)
[2020-12-16] MEDS: GABAPENTIN 300 MG CAP PO SCH (21:44)
[2020-12-16] MEDS: DOLUTEGRAVIR SODIUM 50 MG TAB PO SCH (21:44)
[2020-12-16] MEDS: ENOXAPARIN INJ 40 MG/0.4 ML SYR SQ SCH (21:45)
[2020-12-16] MEDS ORDERED: PNEUMOCOCCAL Polysaccharide Vaccine 25mcg/0.5mL vial/Syr IM ONE (21:45)
[2020-12-16 22:14] LABS: Appearance Urine Clear (Clear); Bacteria Urine Automated Negative (Negative); Bilirubin Urine Negative (Negative); Blood Urine Trace (Negative); Cast Urine Automated 0 /lpf (0-5); Color Urine Yellow; Glucose Urine UA 3+ (Negative); Ketones Urine Trace (Negative); Leukocyte Esterase Urine Negative (Negative); Nitrite Urine Negative (Negative); Protein Urine Trace (Negative); RBC Urine Automated 0-4 /hpf (0-4); Specific Gravity Urine > 1.045 (1.000-1.030); Urobilinogen Urine Negative (Negative); pH Urine 5.5 (4.5-7.5)
[2020-12-17] MEDS: INSULIN ASPART 100 UNITS/ML 3 ML PEN SC SCH ×4 (00:17→17:20)
[2020-12-17] MEDS: LACTATED RINGER'S 1,000 ML IV SCH ×5 (02:57→22:46)
[2020-12-17] MEDS ORDERED: INSULIN GLARGINE SOLOSTAR 100 UNITS/ML 3 ML PEN SC STA (06:05)
[2020-12-17] MEDS: ACETAMINOPHEN 1,000 MG/100 ML VIAL IV PRN (06:07)
[2020-12-17 06:38] LABS: Hematocrit (blood only) 37.5 % (42-52); Hemoglobin 12.5 g/dL (14.0-18.0); Mean Corpuscular Hemoglobin 26.8 pg (25-34); Mean Corpuscular Hgb Conc 33.3 g/dL (32-36); Mean Corpuscular Volume 80.5 fL (80-100); Mean Platelet Volume 11.2 fL (7.4-10.4); Platelet Count 158 K/uL (130-400); RDW Coefficient of Variation 14.4 % (11.5-14.5); RDW Standard Deviation 42.5 fL (36.4-46.3); Red Blood Count 4.66 M/uL (4.7-6.1); White Blood Count 13.27 K/uL (4.8-10.8)
[2020-12-17 07:01] LABS: Estimated Average Glucose 318 mg/dl; Hemoglobin A1C 12.7 % (4.5-5.6)
[2020-12-17 07:09] LABS: Albumin Level 2.8 gm/dl (3.4-5.0); BUN Creatinine Ratio 7.3 (10-20); Calcium 8.8 mg/dl (8.5-10.1); Creatinine Clr Calc Pharmacy 103.3 ml/min; Est GFR (African American) 110.5; Est GFR (Non-African American) 95.4; Potassium 3.9 mmol/L (3.5-5.1)
[2020-12-17 07:16] LABS: Albumin Globulin Ratio 0.8 (0.9-2); Bilirubin,Total 0.9 mg/dl (0.2-1); Globulin 3.6 gm/dl (2.5-4.0); Total Protein 6.4 gm/dl (6.4-8.2)
[2020-12-17] MEDS: FLUTICASONE PROPIONATE NA SPR 16 GM BTL NAE SCH (07:46)
[2020-12-17] MEDS: DOLUTEGRAVIR SODIUM 50 MG TAB PO SCH ×2 (07:47→20:02)
[2020-12-17] MEDS: FAMOTIDINE 20 MG in SYRINGE 3 ML IV SCH ×2 (07:47→20:03)
[2020-12-17] MEDS: UMECLIDINIUM BROMIDE 62.5MCG/BLISTER 7 PUFFS/INHALER INH SCH (07:47)
[2020-12-17] MEDS: FLUTICASONE/VILANTEROL 200/25MCG 14 PUFFS/INHALER INH SCH (07:47)
[2020-12-17] MEDS: HYDROmorphone INJ 0.5 MG/0.5 ML SYR IV PRN ×4 (07:52→20:05)
--- NOTE | 2020-12-17 08:17 | Gastrointestinal Consultation ---
Date of Consultation December 17, 2020 Assessment & Plan (1) Acute pancreatitis: 1. IV fluids. If no cardiac or pulmonary contraindication LR at 250/h x 24 hours then will consider decreasing the rate. 2. Sips of clear liquids po. 3. Analgesics prn. 4. Eventual EGD/EUS as OP in approx 6 wks, our office will arrange. 5. Eventual dietary education on low fat/low triglyceride diet though not sure pt is ready yet today. Present on Admission?: Yes Supervising Physician Co-Signing Physician Notes I have seen and examined the patient and discussed the management with ASA Umana. CC: abd pain Admitted through the er overnite for abdominal pain, workup c/w pancreatitis- lipase elevation, ct abdomen evidence of pancreatitis and reactive duodenitis Pain 06/10 on admission, down this morning after IV hydration overnite PE noteable for obese male in nad, HEENT - no scleral icterus, abd - soft nt nd +bs Labs/imaging reviewed Currently on IV LR - increasing today, pepcid as well Reactive duodenitits given pancreatic inflammation Once pain is down to near 0, can try a trial of liquids for a diet Outpatient EUS in 6-8 weeks likely. Per etiology and history: likely cause of pancreatitis is triglyceride elevation, already is post vibha with a non dilated cbd on current imaging. History of Present Illness Reason for Consultation: Pancreatitis, Duodenitis Requesting Physician: Dr. Grace Attending Physician: Sean Grace MD History of Present Illness Mr. Carmine Winkler is a 55-year-old male with a history of asthma/COPD, HIV, obe sity, hyperlipidemia who presented to the emergency department yesterday for 2 days of upper abdomen pain. On arrival CT scan is consistent with pancreatitis and lipase is above 1700. LFTs are normal. He has been tachycardic, initially up to 115/min currently in the 90s. He has mild leukocytosis at 14. He has not had hypotension. He is awake, alert, orients. Reports upper abd pain began on 12/15/20 and is a bit worse today than yesterday (though I woke him from sleep for the interview/exam). Not passing gas or BMs since prior to pain starting. Had nausea but no vomiting. Is post distant cholecystectomy. Denies any ETOH or marijuana use. Only OTC is occasional Advil. Admits to enjoying fried foods. Was told previously that he had high cholesterol and was previously on meds but stopped (doesn't recall why). Does not believe any new prescription meds in the past year - but unsure. No prior hx of pancreatitis. Allergies Allergy/AdvReac Type Severity Reaction Status Date / Time No Known Allergies Allergy Unknown Verified 12/16/20 19:01 Home Medications Medication Instructions Recorded Confirmed Type esomeprazole magnesium 40 mg 40 mg PO DAILY 09/13/20 12/16/20 History capsule,delayed release fluticasone furoate 200 1 inh INHALATION DAILY 09/13/20 12/16/20 History mcg-vilanterol 25 mcg/dose inhalation powder montelukast 10 mg tablet 10 mg PO QPM 09/13/20 12/16/20 History tiotropium bromide 18 mcg capsule 1 cap INHALATION DAILY 09/13/20 12/16/20 History with inhalation device albuterol sulfate 2 puff INHALATION Q6 PRN 12/16/20 12/16/20 History darunavir-cobicistat [Prezcobix] 1 tab PO DAILY 12/16/20 12/16/20 History dolutegravir [Tivicay] 50 mg PO BID 12/16/20 12/16/20 History fluticasone propionate [Flonase 2 spray INTRANASAL DAILY 12/16/20 12/16/20 History Allergy Relief] gabapentin 300 mg PO HS 12/16/20 12/16/20 History Patient History Medical History (Updated 12/16/20 @ 22:44 by Joo Barreto PA-C) COPD (chronic obstructive pulmonary disease) GERD (gastroesophageal reflux disease) HIV (human immunodeficiency virus infection) RODRIGO on CPAP Surgical History (Updated 12/16/20 @ 18:57 by Nyasia Bravo PA-C) History of cholecystectomy Hx of appendectomy Hx of tonsillectomy Family History Mother Stroke Heart disease Other Dyslipidemia No family history of adverse response to anesthesia No family history of bleeding disorder Social History Smoking Status: Current every day smoker packs per day: 1; Second Hand Exposure: No; Do You Dip or Chew Tobacco: No; Tobacco Cessation Education Requested by Patient: No Hx Alcohol Use: No Hx Substance Use: No Preferred Language: [place] [employer]gienist Required: No Beliefs That Will Affect Care: None Current Living Situation: Spouse Other Information That Helps Us Care for You: No Feels Safe at Home: Yes Safety Concerns: Feels Safe At This Time Assistive Devices: None Physical Exam Constitutional: well developed, well nourished, + obese, well groomed and cooperative; no acute distress and not diaphoretic Eyes: PERRL, conjunctivae normal, anicteric sclerae ENMT: external ear and nose normal, oropharynx normal Respiratory: normal respiratory effort, lungs clear to auscultation Cardiovascular: RRR, no murmur, no edema Gastrointestinal (Abdomen): Inspection/Auscultation: + abdomen distended (mild) and + hypoactive bowel sounds Percussion/Palpation: + abdomen tender (across upper abdomen) and abdomen soft; abdomen not firm Musculoskeletal: no cyanosis or clubbing, extremities motor strength 5/5 Skin: no rashes, warm and dry Neurologic: PERRL, EOMI, accommodation nl, no face palsy, no dysarthria Lymphatic: no cervical or axillary lymphadenopathy Results & Data ([facility]) Vital Signs (Past 12 Hours) Vital Signs Temp Pulse Pulse Resp BP BP Pulse Ox 12/17/20 07:31 36.9 C 94 H 16 130/80 97 12/16/20 20:51 36.9 C 95 H 21 134/79 97 12/16/20 20:30 75 18 128/63 95 Laboratory Results WBC 13, Hb 12.5, H CT 37.5, PL TS 158, Na 131, K3.9, BUN 6, Cr 0.8, Trig 1029, Lipase 1746 -> 773, T Bili 0.8, AST 14, ALT 38,ALK P [address] abd/pelvis with IV contrast 12/16/20: 1. Mild to moderate interstitial and peripancreatic edema involves the uncinate process of the pancreas suggestive of acute pancreatitis. Wall thickening involving the third portion of the duodenum is likely reactive. Primary duodenitis is considered less likely. 2. Cholecystectomy. No biliary ductal dilation. 3. No bowel obstruction. Normal appendix. 4. Hepatic steatosis.
[2020-12-17] MEDS ORDERED: PHARMACY GLYCEMIC MGMT CONSULT PRN (10:06)
[2020-12-17] MEDS ORDERED: INSULIN GLARGINE SOLOSTAR 100 UNITS/ML 3 ML PEN SQ ONE ×2 (10:30→21:00)
--- NOTE | 2020-12-17 14:28 | Pharmacy Report ---
Pharmacy Glycemic Short Note 2 - Date of Service December 17, 2020 - Glycemic Short BSG Results (Last 24 hours): 12/16/20 12/16/20 12/17/20 15:16 20:50 00:15 Glucose 320 H* POC Glucose 224 H 207 H 12/17/20 12/17/20 12/17/20 05:56 06:21 11:59 Glucose 223 H POC Glucose 252 H 184 H OUTPATIENT ANTIDIABETIC REGIMEN: * N/A * A1c 12.7% 12/17/20 ASSESSMENT: * Pt with PMH including HIV, HLD admitted with acute pancreatitis * BSGs elevated on admission, a1c indicative of diabetes, previous pre-diabetes diagnosis currently without oral medications * Patient received 10 units of lantus this AM, gave an additional 10 units. Patient is currently NPO- will set loose scale up to full weight based stress of 2 for evening. * Will tighten novolog correction factor to weight based stress of 3 for now. Lunch BSG improved. PLAN FOR INPATIENT GLYCEMIC CONTROL: * Hold outpatient oral diabetes medications * Basal insulin * Lantus 20 units this morning (10 units x2), scale for PM * Bolus insulin * NovoLog per scale ACHS or Q6hrs while NPO * Goal Range: Low 110 mg/dL - High 140 mg/dL * Correction Factor: 20 mg/dL/unit * Nutritional / Prandial insulin per carb ratio of 1 unit per 9 grams CHO consumed PLAN FOR DISCHARGE: * TBD
[2020-12-17] MEDS: COBICISTAT PO SCH (14:39)
[2020-12-17] MEDS: DARUNAVIR PO SCH (14:39)
--- NOTE | 2020-12-17 17:07 | Hospitalist Progress Note ---
Date of Service December 17, 2020 Assessment & Plan (1) Acute pancreatitis: Patient is a 55 yr male with H/O HIV, COPD, ongoing tobacco use, GERD, prediabetes, RODRIGO on CPAP and other medical issues who presents with abdominal pain x 2 days and was found to have acute pancreatitis. Acute Pancreatitis Reactive Duodenitis Likely secondary to hypertriglyceridemia No H/O Alcohol use H/O cholecystectomy -CT ABD:Mild to moderate interstitial and peripancreatic edema involves the uncinate process of the pancreas suggestive of acute pancreatitis. Wall thickening involving the third portion of the duodenum is likely reactive. Primary duodenitis is considered less likely. Cholecystectomy. No biliary ductal dilation. No bowel obstruction. Normal appendix. Hepatic steatosis. -Lipase 1,746> 773 -Continue IV fluids -Pain control -Bowel rest -Appreciate GI input Hyperlipidemia Started on Lipitor (2) Hyperglycemia: Diabetes mellitus type II New diagnosis HbA1C: 12.7 paraeducator consulted Insulin therapy while hospitalized Glycemic pharmacist consulted (3) HIV (human immunodeficiency virus infection): Follows with Adelina ID at [facility] Most recent labowork in Jun 2020 with detected HIV RNA but <20, not quantifiable Continue home antivirals (4) COPD (chronic obstructive pulmonary disease): Continues to smoke. Offered nicotine patch but not interested Continue Singulair, home inhalers (5) RODRIGO on CPAP: CPAP HS DVT Ppx: SQ Lovenox Code status: FULL PCP: Crys Dispo: Plan to return home once medically stable. Admission and Anticipated Discharge Date Admission Date: December 16, 2020 Subjective Patient is seen and examined at bedside Continues to have persistent abdominal pain Denies chest pain, dyspnea, dizziness, nausea, diarrhea Offers no other complaints Review of Systems Review of Systems: All systems reviewed & are unremarkable except as noted in HPI & below Physical Exam Physical Exam: Physical Exam: Vitals signs as noted above General Appearance:Moderately built and nourished, no apparent distress Head: normocephalic, Atraumatic Eyes: normal inspection, EOMI Neck: supple, Trachea midline Respiratory/Chest: Decreased breath sounds, CTA Cardiovascular: S1, S2, No murmur Abdomen/GI:Soft, Epigastric tender predominantly, Bowel sounds present Extremities/Musculoskelatal:normal inspection, no edema Neurologic/Psych:AAOX3, grossly no focal neurological deficits Skin: normal color, warm Results & Data Results & Data ([place]) Vital Signs (Past 12 Hours) Vital Signs Temp Pulse Resp BP Pulse Ox 12/17/20 14:21 36.6 C 75 16 122/69 98 12/17/20 07:31 36.9 C 94 H 16 130/80 97 Laboratory Results Short CBC 12/17/20 Range/Units 06:21 WBC 13.27 H (4.8-10.8) K/uL Hgb 12.5 L (14.0-18.0) g/dL Hct 37.5 L (42-52) % Plt Count 158 (130-400) K/uL BMP 12/16/20 12/17/20 15:16 06:21 Sodium 137 135 L Potassium 4.2 3.9 Chloride 104 Carbon Dioxide 25 BUN 6 L Creatinine 0.88 Glucose 223 H Calcium 8.8 Liver Function 12/16/20 12/17/20 Range/Units 15:16 06:21 Total Bilirubin 0.9 (0.2-1) mg/dl AST 14 L 16 (15-37) U/L ALT 34 (12-78) U/L Alkaline Phosphatase 133 H (45-117) U/L Albumin 2.8 L (3.4-5.0) gm/dl Urine 12/16/20 Range/Units 21:54 Urine Color Yellow Urine Appearance Clear (Clear) Urine pH 5.5 (4.5-7.5) Ur Specific [place] > 1.045 H (1.000-1.030) Urine Protein Trace H (Negative) Urine Glucose (UA) 3+ H (Negative)
[2020-12-17] MEDS: GABAPENTIN 300 MG CAP PO SCH (20:02)
[2020-12-17] MEDS: ATORVASTATIN 20 MG TAB PO SCH (20:02)
[2020-12-17] MEDS: MONTELUKAST SODIUM 10 MG TABLET PO SCH (20:02)
[2020-12-17] MEDS: ENOXAPARIN INJ 40 MG/0.4 ML SYR SQ SCH (20:05)
[2020-12-18] MEDS: INSULIN ASPART 100 UNITS/ML 3 ML PEN SC SCH ×5 (00:38→21:10)
[2020-12-18] MEDS: LACTATED RINGER'S 1,000 ML IV SCH ×5 (03:27→18:40)
[2020-12-18 06:41] LABS: Basophils # (auto) 0.02 K/uL (0-0.2); Basophils % (auto) 0.2 %; Eosinophils % (auto) 0.9 %; Hematocrit (blood only) 34.5 % (42-52); Hemoglobin 11.5 g/dL (14.0-18.0); Immature Granulocytes # (auto) 0.02 K/uL (0.00-0.02); Immature Granulocytes % (auto) 0.2 %; Lymphocytes # (auto) 1.54 K/uL (1.2-3.4); Lymphocytes % (auto) 13.7 %; Mean Corpuscular Hemoglobin 26.6 pg (25-34); Mean Corpuscular Hgb Conc 33.3 g/dL (32-36); Mean Corpuscular Volume 79.7 fL (80-100); Mean Platelet Volume 11.8 fL (7.4-10.4); Monocytes # (auto) 0.85 K/uL (0.11-0.59); Monocytes % (auto) 7.5 %; Neutrophils # (auto) 8.75 K/uL (1.4-6.5); Neutrophils % (auto) 77.5 %; Platelet Count 164 K/uL (130-400); RDW Coefficient of Variation 14.3 % (11.5-14.5); RDW Standard Deviation 41.5 fL (36.4-46.3); Red Blood Count 4.33 M/uL (4.7-6.1); White Blood Count 11.28 K/uL (4.8-10.8)
[2020-12-18 07:16] LABS: BUN Creatinine Ratio 8.1 (10-20); Calcium 9.2 mg/dl (8.5-10.1); Est GFR (African American) 116.8; Est GFR (Non-African American) 100.7; Magnesium 1.8 mg/dl (1.8-2.4); Potassium 3.7 mmol/L (3.5-5.1)
[2020-12-18] MEDS: FLUTICASONE/VILANTEROL 200/25MCG 14 PUFFS/INHALER INH SCH (07:45)
[2020-12-18] MEDS: FLUTICASONE PROPIONATE NA SPR 16 GM BTL NAE SCH (07:46)
[2020-12-18] MEDS: UMECLIDINIUM BROMIDE 62.5MCG/BLISTER 7 PUFFS/INHALER INH SCH (07:46)
[2020-12-18] MEDS: DOLUTEGRAVIR SODIUM 50 MG TAB PO SCH ×2 (07:47→21:01)
[2020-12-18] MEDS: DARUNAVIR PO SCH (07:48)
[2020-12-18] MEDS: COBICISTAT PO SCH (07:48)
[2020-12-18] MEDS: HYDROmorphone INJ 0.5 MG/0.5 ML SYR IV PRN (07:50)
[2020-12-18] MEDS: FAMOTIDINE 20 MG in SYRINGE 3 ML IV SCH ×2 (07:50→21:07)
[2020-12-18] MEDS ORDERED: INSULIN GLARGINE SOLOSTAR 100 UNITS/ML 3 ML PEN SQ SCH ×3 (09:00→16:30)
--- NOTE | 2020-12-18 10:31 | Gastroenterology Progress Note ---
Date of Service December 18, 2020 Assessment & Plan (1) Acute pancreatitis: Like secondary to hypertriglyceridemia. Doesn't drink alcohol, is post cholecystectomy and no abnormalities on imaging - no elevated LFTs. Also considered is drug induced, though pt says no new meds. 1. Will decrease IV fluids to 175/hr and start clear liquids po. May advance diet as tolerated. 2. Eventual EGD/EUS as OP in approx 6 wks, our office will arrange. 3. Will place dietary consult for pt regarding teaching on low fat, low triglyceride diet. 4. Would consider medical tx of hypertriglyceridemia. Present on Admission?: Yes Admission and Anticipated Discharge Date Admission Date: December 16, 2020 Supervising Physician Co-Signing Physician Notes I have seen and discussed the management with ASA Umana. Pain improved. Enjoying his show on his tv. PE - well nourished male in nad, abd - soft nt nd +bs Agree with further plan of care as per Ragini's plan of care. Subjective 55 yr male, Hx hyperlipidemia admitted for abd pain. CT and elevated lipase consistant with acute, uncomplicated pancreatitis. Pt feels "50% better today." Still some diffuse abd pain. Asks to eat/drink. No nausea/vomiting. + passing flatus Hb 13->11.5 (meeting hydration goal). WBC 13->11. No fevers, tachycardia or diaphoresis. Semi sitting in bed. Watching a TV episode on his phone. Review of Systems Review of Systems: ROS: Gen: Denies weakness, fevers, weight loss Eyes: No eye redness, or pain, no recent vision changes Resp: No SOB, no cough Cardio: No palpitations/irregular beats, no chest pain GI: See HPI, otherwise (-) : Denies pain on urination Skin: No jaundice, itching or new rashes Physical Exam Constitutional: well developed, well nourished, + obese, well groomed and cooperative; no acute distress and not diaphoretic Eyes: PERRL, conjunctivae normal, anicteric sclerae ENMT: external ear and nose normal, oropharynx normal Respiratory: normal respiratory effort, lungs clear to auscultation Cardiovascular: RRR, no murmur, no edema Gastrointestinal (Abdomen): Inspection/Auscultation: + abdomen distended (mild) and + hypoactive bowel sounds Percussion/Palpation: + abdomen tender (across upper abdomen) and abdomen soft; abdomen not firm Musculoskeletal: no cyanosis or clubbing, extremities motor strength 5/5 Skin: no rashes, warm and dry Neurologic: PERRL, EOMI, accommodation nl, no face palsy, no dysarthria Lymphatic: no cervical or axillary lymphadenopathy Results & Data ([facility]) Vital Signs (Past 12 Hours) Vital Signs Temp Pulse Resp BP Pulse Ox 12/18/20 08:06 36.8 C 85 16 102/64 95 12/17/20 23:23 36.8 C 88 19 120/72 95 Laboratory Results WBC 11, Hb 11.5, Hct 34, Pts 164, BUN 6, Cr 0.7, glucose 173.
--- NOTE | 2020-12-18 11:40 | Pharmacy Report ---
Pharmacy Glycemic Short Note 2 - Date of Service December 18, 2020 - Glycemic Short BSG Results (Last 24 hours): 12/17/20 12/17/20 12/17/20 11:59 17:14 20:02 Glucose POC Glucose 184 H 151 H 168 H 12/18/20 12/18/20 12/18/20 00:25 06:05 06:07 Glucose 173 H POC Glucose 171 H 171 H 12/18/20 08:02 Glucose POC Glucose 173 H OUTPATIENT ANTIDIABETIC REGIMEN: * N/A * A1c 12.7% 12/17/20 ASSESSMENT: 12/18/20: * Carmine received 38 units of insulin yesterday with decent glycemic control: * 26 units of basal * 12 units of bolus * NPO during this time * Fasting BSG of 171 mg/dL remains above goal but is trending in the right direction. * continue Lantus dosed per scale - will attempt to transition to once daily dosing on 12/19 * Post prandial BSGs improved throughout the day yesterday * difficult to determine prandial needs at this time per patient has been NPO since time of consultation 12/17/20: * Pt with PMH including HIV, HLD admitted with acute pancreatitis * BSGs elevated on admission, a1c indicative of diabetes, previous pre-diabetes diagnosis currently without oral medications * Patient received 10 units of lantus this AM, gave an additional 10 units. Patient is currently NPO- will set loose scale up to full weight based stress of 2 for evening. * Will tighten novolog correction factor to weight based stress of 3 for now. Lunch BSG improved. PLAN FOR INPATIENT GLYCEMIC CONTROL: * Basal insulin * Lantus 12 units SQ this morning, then per scale: * 6 units for BSG < 120 * 10 units for BSG 120-200 * 16 units for BSG > 200 * Bolus insulin * NovoLog per scale ACHS or Q6hrs while NPO * Goal Range: Low 110 mg/dL - High 140 mg/dL * Correction Factor: 20 mg/dL/unit * Nutritional / Prandial insulin per carb ratio of 1 unit per 9 grams CHO consumed PLAN FOR DISCHARGE: * A1c = 12.7% * Recommend the addition of once daily basal insulin (basaglar) + metformin * dose to be determined (I suspect ~20-30 units per day) * caution with metformin due to drug interaction with dolutegravir (decreased renal elimination of metformin) -> do not exceed 1000 mg/day of metformin and close monitoring of blood glucose
--- NOTE | 2020-12-18 13:21 | Hospitalist Progress Note ---
Date of Service December 18, 2020 Assessment & Plan (1) Acute pancreatitis: 55 yr male with H/O HIV, COPD, ongoing tobacco use, GERD, prediabetes, RODRIGO on CPAP and other medical issues who presents with abdominal pain x 2 days and was found to have acute pancreatitis. Acute Pancreatitis Reactive Duodenitis Likely secondary to hypertriglyceridemia Hyperlipidemia No H/O Alcohol use H/O cholecystectomy Other risk factors are HIV meds -CT ABD:Mild to moderate interstitial and peripancreatic edema involves the uncinate process of the pancreas suggestive of acute pancreatitis. Wall thickening involving the third portion of the duodenum is likely reactive. Prima ry duodenitis is considered less likely. Cholecystectomy. No biliary ductal dilation. No bowel obstruction. Normal appendix. Hepatic steatosis. -Lipase 1,746> 773 -Triglycerides 1029 -Total cholesterol 343 Educated patient on findings Continue atorvastatin Continue pain control IV fluids reduced. Started on clear liquids. Will advance as tolerated. GI recommendations appreciated (2) Hyperglycemia: Diabetes mellitus type II New diagnosis HbA1C: 12.7 Educated patient on diabetes management certified diabetes educator also provided education yesterday Insulin therapy while hospitalized Glycemic pharmacist recommendations appreciated. (3) HIV (human immunodeficiency virus infection): Follows with Adelina ID at [facility] Most recent labowork in Jun 2020 with detected HIV RNA but <20, not quantifiable Continue home antivirals Patient advised to discuss current hospitalization and diagnoses with ID on Follow-up (4) COPD (chronic obstructive pulmonary disease): Continues to smoke. Was offered nicotine patch but not interested Continue Singulair, home inhalers Smoking cessation counseling provided (5) RODRIGO on CPAP: CPAP HS DVT Ppx: SQ Lovenox Code status: FULL PCP: Crys Dispo: Plan to return home once medically stable. Admission and Anticipated Discharge Date Admission Date: December 16, 2020 Subjective Patient seen and examined. Reports abdominal pain has improved significantly, currently mild Denies nausea, vomiting Yet to move bowel but has been passing flatus Denies fevers, chills Denies chest pain, cough, shortness of breath, dyspnea on exertion Reports chronic hearing loss Denied dysuria, frequency, urgency, hematuria Physical Exam Constitutional: + well hydrated and + obese; no acute distress Eyes: PERRL, conjunctivae normal, anicteric sclerae ENMT: external ear and nose normal, oropharynx normal Ears: + hearing impairment Respiratory: normal respiratory effort, lungs clear to auscultation Cardiovascular: RRR, no murmur, no edema Gastrointestinal (Abdomen): Soft, mild epigastric tenderness, positive bowel sounds Musculoskeletal: no cyanosis or clubbing, extremities motor strength 5/5 Neurologic: PERRL, EOMI, accommodation nl, no face palsy, no dysarthria Psychiatric: A+Ox3, euthymic affect Results & Data Results & Data ([facility]) Vital Signs (Past 12 Hours) Vital Signs Temp Pulse Resp BP Pulse Ox 12/18/20 08:06 36.8 C 85 16 102/64 95 Laboratory Results Laboratory Results - last 24 hr 12/17/20 12/17/20 12/18/20 17:14 20:02 00:25 WBC RBC Hgb Hct MCV MCH MCHC RDW Std Deviation RDW Coeff of Saul Plt Count MPV Immature Gran % (Auto) Neut % (Auto) Lymph % (Auto) Cochran % (Auto) Eos % (Auto) Baso % (Auto) Neut # (Auto) Lymph # (Auto) Cochran # (Auto) Eos # (Auto) Baso # (Auto) Immature Gran # (Auto) Sodium Potassium Chloride Carbon Dioxide Anion Gap BUN Creatinine Est Cr Clr Drug Dosing Est GFR ( Amer) Est GFR (Non-Af Amer) BUN/Creatinine Ratio Glucose POC Glucose 151 H 168 H 171 H Calcium Magnesium 12/18/20 12/18/20 12/18/20 06:05 06:05 06:07 WBC 11.28 H RBC 4.33 L Hgb 11.5 L Hct 34.5 L MCV 79.7 L MCH 26.6 MCHC 33.3 RDW Std Deviation 41.5 RDW Coeff of Saul 14.3 Plt Count 164 MPV 11.8 H Immature Gran % (Auto) 0.2 Neut % (Auto) 77.5 Lymph % (Auto) 13.7 Cochran % (Auto) 7.5 Eos % (Auto) 0.9 Baso % (Auto) 0.2 Neut # (Auto) 8.75 H Lymph # (Auto) 1.54 Cochran # (Auto) 0.85 H Eos # (Auto) 0.10 Baso # (Auto) 0.02 Immature Gran # (Auto) 0.02 Sodium 134 L Potassium 3.7 Chloride 102 Carbon Dioxide 24 Anion Gap 8.0 BUN 6 L Creatinine 0.77 Est Cr Clr Drug Dosing 118.0 Est GFR ( Amer) 116.8 Est GFR (Non-Af Amer) 100.7 BUN/Creatinine Ratio 8.1 L Glucose 173 H POC Glucose 171 H Calcium 9.2 Magnesium 1.8 12/18/20 12/18/20 08:02 11:55 WBC RBC Hgb Hct MCV MCH MCHC RDW Std Deviation RDW Coeff of Saul Plt Count MPV Immature Gran % (Auto) Neut % (Auto) Lymph % (Auto) Cochran % (Auto) Eos % (Auto) Baso % (Auto) Neut # (Auto) Lymph # (Auto) Cochran # (Auto) Eos # (Auto) Baso # (Auto) Immature Gran # (Auto) Sodium Potassium Chloride Carbon Dioxide Anion Gap BUN Creatinine Est Cr Clr Drug Dosing Est GFR ( Amer) Est GFR (Non-Af Amer) BUN/Creatinine Ratio Glucose POC Glucose 173 H 173 H Calcium Magnesium
[2020-12-18] MEDS: ENOXAPARIN INJ 40 MG/0.4 ML SYR SQ SCH (21:01)
[2020-12-18] MEDS: GABAPENTIN 300 MG CAP PO SCH (21:01)
[2020-12-18] MEDS: ATORVASTATIN 20 MG TAB PO SCH (21:01)
[2020-12-18] MEDS: MONTELUKAST SODIUM 10 MG TABLET PO SCH (21:01)
[2020-12-18] MEDS: ACETAMINOPHEN 1,000 MG/100 ML VIAL IV PRN (21:07)
[2020-12-19] MEDS: LACTATED RINGER'S 1,000 ML IV SCH ×2 (02:04→07:49)
[2020-12-19 06:42] LABS: Hematocrit (blood only) 35.5 % (42-52); Hemoglobin 11.9 g/dL (14.0-18.0); Mean Corpuscular Hemoglobin 26.5 pg (25-34); Mean Corpuscular Hgb Conc 33.5 g/dL (32-36); Mean Corpuscular Volume 79.1 fL (80-100); Mean Platelet Volume 11.1 fL (7.4-10.4); Platelet Count 167 K/uL (130-400); RDW Coefficient of Variation 14.3 % (11.5-14.5); RDW Standard Deviation 40.9 fL (36.4-46.3); Red Blood Count 4.49 M/uL (4.7-6.1); White Blood Count 9.45 K/uL (4.8-10.8)
[2020-12-19 07:08] LABS: BUN Creatinine Ratio 9.8 (10-20); Calcium 9.6 mg/dl (8.5-10.1); Creatinine Clr Calc Pharmacy 122.8 ml/min; Est GFR (African American) 118.7; Est GFR (Non-African American) 102.4; Potassium 3.8 mmol/L (3.5-5.1)
[2020-12-19] MEDS ORDERED: INSULIN GLARGINE SOLOSTAR 100 UNITS/ML 3 ML PEN SQ SCH (09:00)
[2020-12-19] MEDS: FLUTICASONE/VILANTEROL 200/25MCG 14 PUFFS/INHALER INH SCH (09:32)
[2020-12-19] MEDS: FLUTICASONE PROPIONATE NA SPR 16 GM BTL NAE SCH (09:33)
[2020-12-19] MEDS: UMECLIDINIUM BROMIDE 62.5MCG/BLISTER 7 PUFFS/INHALER INH SCH (09:33)
[2020-12-19] MEDS: COBICISTAT PO SCH (09:34)
[2020-12-19] MEDS: DOLUTEGRAVIR SODIUM 50 MG TAB PO SCH (09:34)
[2020-12-19] MEDS: DARUNAVIR PO SCH (09:34)
[2020-12-19] MEDS: FAMOTIDINE 20 MG in SYRINGE 3 ML IV SCH (09:35)
[2020-12-19] MEDS: INSULIN ASPART 100 UNITS/ML 3 ML PEN SC SCH ×2 (09:39→12:54)
--- NOTE | 2020-12-19 11:14 | Gastroenterology Progress Note ---
Date of Service December 19, 2020 Assessment & Plan (1) Acute pancreatitis: Like secondary to hypertriglyceridemia. Denies hx of increased alcohol intake; post cholecystectomy; no abnormalities on imaging; no elevated LFTs. Also considered is drug induced, though pt says no new meds. 1. OP EGD/EUS in approx 6 wks, our office will arrange. 2. Low fat, regular consistency diet. 3. Consider medical tx of hypertriglyceridemia as OP. Admission and Anticipated Discharge Date Admission Date: December 16, 2020 Supervising Physician Co-Signing Physician Notes I have seen and discussed the management wtih Ragini BRAY. Tolerating soft this am - no pain since yesterday am. PE - well nourished male in nad, HEENT - perrla, Pulm- ctab, CV- rrr no mrg, Abd - soft nt nd +bs Labs/imaging reviewed Ok to dc home from a gi perspective, outpatient eus in 6-8 weeks. Subjective 55 yr male, Hx hyperlipidemia admitted for abd pain. CT and elevated lipase consistant with acute, uncomplicated pancreatitis. Continues to improve. Tolerating a low fat, soft diet. + passing flatus Review of Systems Review of Systems: ROS: Gen: Denies weakness, fevers, weight loss Eyes: No eye redness, or pain, no recent vision changes Resp: No SOB, no cough Cardio: No palpitations/irregular beats, no chest pain GI: See HPI, otherwise (-) : Denies pain on urination Skin: No jaundice, itching or new rashes Physical Exam Constitutional: well developed, well nourished, + obese, well groomed and cooperative; no acute distress and not diaphoretic Eyes: PERRL, conjunctivae normal, anicteric sclerae ENMT: external ear and nose normal, oropharynx normal Respiratory: normal respiratory effort, lungs clear to auscultation Cardiovascular: RRR, no murmur, no edema Gastrointestinal (Abdomen): Inspection/Auscultation: normal bowel sounds; abdomen not distended Percussion/Palpation: abdomen soft; abdomen nontender Musculoskeletal: no cyanosis or clubbing, extremities motor strength 5/5 Skin: no rashes, warm and dry Neurologic: PERRL, EOMI, accommodation nl, no face palsy, no dysarthria Lymphatic: no cervical or axillary lymphadenopathy Results & Data ([facility]) Vital Signs (Past 12 Hours) Vital Signs Temp Pulse Resp BP Pulse Ox 12/19/20 07:29 36.4 C L 78 20 116/63 98 12/18/20 23:39 36.5 C 76 20 119/75 99
--- NOTE | 2020-12-19 13:21 | Discharge Summary ---
Date of Service December 19, 2020 Admission HPI Per Admitting Provider This is a 55yo M with a PMH of HIV, COPD, ongoing tobacco use, GERD, prediabetes, RODRIGO on CPAP and other medical issues who presents with abdominal pain x 2 days. Tried Pepto bismol and a laxative but did not alleviate symptoms. Pain is sharp and cramping in epigastric region as well as lower abdomen and wraps towards his back. Pain is constant. Improved after pain medication. Endorses subjective fever and chills. Denies nausea or vomiting. Had 2 soft bowel movements earlier today. Denies lightheadedness, headache, chest pain, wheezing or dysuria. Chronic unchanged cough. Transient episode of SOB after CT scan but has resolved. Denies alcohol use. Smokes 1 pack/day. Diagnosed with prediabetes in the past and has not had A1c checked recently. Family history of dyslipidemia. History of cholecystectomy. Admission Exam Per Admitting Provider General Appearance: WD/WN, vitals as above, NAD, sitting up in bed, pleasant, conversing easily Head: normocephalic, atraumatic Eyes: normal inspection, PERRL, conjunctivae normal, anicteric sclerae ENT: external ear and nose normal, oropharynx normal Neck: normal visual inspection, trachea midline, no thyromegaly Respiratory: normal respiratory effort, lungs clear to auscultation, no wheeze, rales, rhonchi. No accessory muscle use Cardiovascular: regular rate, rhythm, no murmur, normal peripheral pulses, no BLE edema. Vessels: no JVD Chest: normal inspection of chest Abdomen/GI: normal bowel sounds, soft, dffusely TTP but no guarding, no hepatosplenomegaly Extremities/Musculoskeletal: no cyanosis or clubbing, extremities motor strength 5/5 Neurologic: PERRL, EOMI, accommodation nl, no face palsy, no dysarthria, CN's II-XI intact bilaterally and moves all extremities Psychiatric: A+Ox3, euthymic affect Skin: no rashes, normal color, warm/dry Principal Diagnosis Acute pancreatitis Hypertriglyceridemia New diagnosis of diabetes mellitus Discharge Exam Constitutional + well hydrated and + obese; no acute distress Eyes PERRL, conjunctivae normal, anicteric sclerae ENMT external ear and nose normal, oropharynx normal Ears: + hearing impairment Respiratory normal respiratory effort, lungs clear to auscultation Cardiovascular RRR, no murmur, no edema Gastrointestinal (Abdomen) normal bowel sounds, soft, nontender, no hepatosplenomegaly Musculoskeletal no cyanosis or clubbing, extremities motor strength 5/5 Neurologic PERRL, EOMI, accommodation nl, no face palsy, no dysarthria Psychiatric A+Ox3, euthymic affect Discharge Data Allergies Allergy/AdvReac Type Severity Reaction Status Date / Time No Known Allergies Allergy Unknown Verified 12/16/20 19:01 Consultations 12/16/20 18:09 ED Decision to Admit Stat 12/17/20 08:00 Consult Gastroenterology Routine Ordered Studies 12/16/20 15:11 CT abd pelvis IV con only Stat The imaged inferior cardiac chambers are unremarkable. Unchanged 2.0 x 1.3 cm hypodense right epicardial nodule which is likely benign. Clear lung bases. No pneumatosis or pneumoperitoneum. The spleen and adrenal glands are unremarkable. Cholecystectomy. Hepatic steatosis. Patency of the hepatic and portal veins. There is mild to moderate interstitial and peripancreatic edema involving the uncinate process of the pancreas with reactive edema extending into the mesenteric root and right pericolic gutter. No evidence of pancreatic necrosis. No pancreatic ductal dilation or peripancreatic fluid collection. There is circumferential wall thickening involving the third portion of the duodenum. No evidence of perforation. No bowel obstruction. Normal appendix. Tiny fat filled periumbilical hernia. No acute fracture. Posterior disc osteophyte complex noted at L5-S1. IMPRESSION: 1. Mild to moderate interstitial and peripancreatic edema involves the uncinate process of the pancreas suggestive of acute pancreatitis. Wall thickening involving the third portion of the duodenum is likely reactive. Primary duodenitis is considered less likely. 2. Cholecystectomy. No biliary ductal dilation. 3. No bowel obstruction. Normal appendix. 4. Hepatic steatosis Diabetes Follow up Diabetes Follow-up Needed for HgbA1c >9% Hospital Course (1) Acute pancreatitis: 55 yr male with H/O HIV, COPD, ongoing tobacco use, GERD, prediabetes, RODRIGO on CPAP and other medical issues who presents with abdominal pain x 2 days and was found to have acute pancreatitis. Acute Pancreatitis Reactive Duodenitis Likely secondary to hypertriglyceridemia Hyperlipidemia No H/O Alcohol use H/O cholecystectomy Other risk factors are HIV meds -CT ABD:Mild to moderate interstitial and peripancreatic edema involves the uncinate process of the pancreas suggestive of acute pancreatitis. Wall thickening involving the third portion of the duodenum is likely reactive. Primary duodenitis is considered less likely. Cholecystectomy. No biliary ductal dilation. No bowel obstruction. Normal appendix. Hepatic steatosis. -Lipase 1,746> 773 -Triglycerides 1029 -Total cholesterol 343 Pancreatitis was managed medically with IV fluids and pain management Educated patient on findings Patient was started on atorvastatin Abdominal pain resolved with good tolerance of diet Patient was evaluated by gastroenterology and needs outpatient follow-up with GI for EGD and EUS in 6 weeks (2) Hyperglycemia: Diabetes mellitus type II New diagnosis HbA1C: 12.7 Educated patient on diabetes management in service educator also provided education and glucometer as well Insulin therapy initiated during hospital stay Based on insulin requirements, patient was discharged on insulin Lantus 30 units daily and Metformin 500 mg twice daily. Patient was advised to monitor blood sugar twice a day for the next 1 week and to follow-up with PCP and ict educator outpatient (3) HIV (human immunodeficiency virus infection): Follows with [facility] at [facility] Most recent lab work in Jun 2020 with detected HIV RNA but <20, not quantifiable Continue home antivirals Patient advised to discuss current hospitalization and diagnoses with ID on Follow-up (4) COPD (chronic obstructive pulmonary disease): Continues to smoke. Continue Singulair, home inhalers Smoking cessation counseling provided (5) RODRIGO on CPAP: CPAP HS Total Time Total Time Spent Total Time Spent (In Minutes): 45 Total Time Includes: Examination of the Patient, Discharge Planning, Medication Reconciliation (Discussed medication changes extensively with patient) and Communication With Other Providers Discharge Plan Discharge Items Patient Disposition: Home - Self-Care Reason For Visit: Abdominal pain Discharge Diagnosis: Acute pancreatitis Hypertriglyceridemia New diagnosis of diabetes mellitus Condition on Discharge: Good Activity: Resume your previous activity Non-emergency contact: Primary Care Provider Call non-emergency contact if: you have any medication questions Follow-up/Referrals: John Spangler MD [Primary Care Provider] - (Date & Time 12/26/2020 11:20 AM Provider John Spangler MD [facility] ) Diet: Carb Consistent or DM2 and Heart Healthy Addtl Attending Provider Instructions: Mr. Winkler You came to the hospital complaining of abdominal pain. You were evaluated and found to have acute pancreatitis, high cholesterol/triglyceride levels and new diagnosis of diabetes. You were managed with medications and your symptoms improved. You were started on new medications including insulin injection (once a day), Metformin and atorvastatin. It is very important that you take medications as prescribed and follow management of diabetes as discussed. Please ensure follow-up with in service educator outpatient and you primary care doctor. Please discuss the new diagnosis and medication changes with your infectious disease doctor. It was a pleasure taking care of you Pending Studies at Discharge: No Stand-Alone Forms: My [facility], Work/School Release (Inpt), Smoking Cessation Medications and DC Order Prescriptions: New atorvastatin 20 mg Tablet 20 mg PO HS 30 Days Qty: 30 RF: 0 Lantus Solostar U-100 Insulin 100 unit/mL (3 mL) Insulin Pen 30 unit subcut QAM Qty: 15 RF: 0 (DME) OneTouch Verio test strips Strip See Rx Instructions .ROUTE .MEDSUPPLY Qty: 100 RF: 0 (DME) lancets [OneTouch Delica Lancets] 33 gauge misc See Rx Instructions .ROUTE .MEDSUPPLY Qty: 100 RF: 0 (DME) pen needle, diabetic [Pen Needle] 32 gauge x 5/32" needle See Rx Instructions .ROUTE .MEDSUPPLY Qty: 50 RF: 0 metformin 500 mg tablet 500 mg PO BID Qty: 60 RF: 0 Continued Breo Ellipta 200-25 mcg/dose blister with device 1 inh inhalation DAILY RF: 0 Spiriva with HandiHaler 18 mcg capsule, w/inhalation device 1 cap inhalation DAILY RF: 0 esomeprazole magnesium 40 mg capsule,delayed release(DR/EC) 40 mg PO DAILY RF: 0 montelukast 10 mg tablet 10 mg PO QPM RF: 0 Prezcobix 800-150 mg-mg Tablet 1 tab PO DAILY RF: 0 gabapentin 100 mg capsule 300 mg PO HS RF: 0 albuterol sulfate 90 mcg/actuation HFA aerosol inhaler 2 puff INHALATION Q6 PRN (Reason: Shortness Of Breath Or Wheezing) RF: 0 fluticasone propionate [Flonase Allergy Relief] 50 mcg/actuation [place],S uspension 2 spray INTRANASAL DAILY RF: 0 Tivicay 50 mg Tablet 50 mg PO BID RF: 0 Discharge Orders: Discharge Order (Routine); Ordered 12/19/20 Ordered By: Daisha Peters/Other Patient Handouts: Diabetes: Inspecting Your Feet, Diabetes: Caring for Your Body, Diabetes: The Benefits of Exercise, Diabetes: Exams and Tests, Diabetes: Living Your Life, Diabetes Carbs Fats Protein Admission Data Admit Date/Time: 12/16/20 18:14 Attending Provider: Daisha Hazel I. Admit Provider: Sean Grace Primary Care Provider: John Spangler Other Providers: Sean Grace ; Shirley Maddox Other Interventions: Discharge Summary Assessment (RN) Last Done: 12/19/20 13:25
--- NOTE | 2020-12-19 13:31 | Pharmacy Report ---
Pharmacy Glycemic Short Note 2 - Date of Service December 19, 2020 - Glycemic Short BSG Results (Last 24 hours): 12/18/20 12/18/20 12/19/20 17:03 21:09 06:20 Glucose 182 H POC Glucose 207 H 194 H 12/19/20 12/19/20 08:10 11:42 Glucose POC Glucose 177 H 210 H OUTPATIENT ANTIDIABETIC REGIMEN: * N/A * A1c 12.7% 12/17/20 ASSESSMENT: 12/19/20: * Carmine received 50 units of insulin yesterday with less than ideal glycemic control * 28 units of basal insulin * 22 units of bolus insulin * Fasting BSG remains above goal. Will increase Lantus by 20% and move to once daily AM dosing. * Tighten carb coverage for persistent post prandial hyperglycemia. 12/18/20: * Carmine received 38 units of insulin yesterday with decent glycemic control: * 26 units of basal * 12 units of bolus * NPO during this time * Fasting BSG of 171 mg/dL remains above goal but is trending in the right direction. * continue Lantus dosed per scale - will attempt to transition to once daily dosing on 12/19 * Post prandial BSGs improved throughout the day yesterday * difficult to determine prandial needs at this time per patient has been NPO since time of consultation 12/17/20: * Pt with H including HIV, HLD admitted with acute pancreatitis * BSGs elevated on admission, a1c indicative of diabetes, previous pre-diabetes diagnosis currently without oral medications * Patient received 10 units of lantus this AM, gave an additional 10 units. Patient is currently NPO- will set loose scale up to full weight based stress of 2 for evening. * Will tighten novolog correction factor to weight based stress of 3 for now. [facility] BSG improved. PLAN FOR INPATIENT GLYCEMIC CONTROL: * Basal insulin - increase * Lantus 32 units SQ qAM * Bolus insulin - tighten carb coverage * NovoLog per scale ACHS or Q6hrs while NPO * Goal Range: Low 110 mg/dL - High 140 mg/dL * Correction Factor: 25 mg/dL/unit * Nutritional / Prandial insulin per carb ratio of 1 unit per 7 grams CHO consumed PLAN FOR DISCHARGE: * A1c = 12.7% * Recommend the addition of once daily basal insulin (basaglar) + metformin * Basaglar 30 units SQ once daily in the morning - dose to be titrated by outpatient provider * Caution with metformin due to drug interaction with dolutegravir (decreased renal elimination of metformin) -> do not exceed 1000 mg/day of metformin and close monitoring of blood glucose * Check blood sugar 2x/day (see additional recs from CDE)
== END 2020-12-19 14:34 | disposition home or self-care (01) | DRG 439 ==
LOC: ED 14:38 → SUATTDRO 18:14 → 3W 18:14